=== PATIENT | male | born 1995 | race Caucasian/White ===

== ENCOUNTER 2019-07-06 14:33 | Emergency (ER) | payer OTHER ==
[~2019-07-06] VITALS: Ht 175.3 cm; Wt 61.2 kg
[2019-07-06 14:42] VITALS: BP 128/79
--- NOTE | 2019-07-06 14:45 | NUR ---
PT TO ER BED 3
[2019-07-06] MEDS ORDERED: NACL 0.9% 1,000 ML IV SCH (14:47)
[2019-07-06] MEDS ORDERED: KETOROLAC 30 MG/ML VIAL IVP ONE (14:50)
[2019-07-06] MEDS ORDERED: ONDANSETRON 4 MG/2 ML VIAL IVP ONE (14:50)
[2019-07-06 15:08] LABS: BASOPHILS % (AUTO) 0.1 % (0.0-2.0); HEMATOCRIT 41.9 % (36-52); HEMOGLOBIN 14.1 g/dL (12.0-18.0); LYMPHOCYTES # (AUTO) 0.9 K/uL (2.0-11.5); LYMPHOCYTES % (AUTO) 4.7 % (20.5-51.1); MEAN CORPUSCULAR HEMOGLOBIN 31 pg (27-31); MEAN CORPUSCULAR HGB CONC 34 g/dL (33-37); MEAN CORPUSCULAR VOLUME 92.3 fL (80-94); MONOCYTES # (AUTO) 0.6 K/uL (0.8-1.0); MONOCYTES % (AUTO) 2.8 % (1.7-9.3); NEUTROPHILS % (AUTO) 92.4 % (42.2-75.2); PLATELET COUNT (AUTO) 435 K/uL (140-450); RED BLOOD CELL COUNT(AUTO) 4.54 MIL/uL (4.20-6.10); RED CELL DISTRIBUTION WIDTH 13.6 % (11.6-13.7); WHITE BLOOD COUNT (AUTO) 19.5 K/uL (4.8-10.8)
--- NOTE | 2019-07-06 15:14 | NUR ---
23YO M C/O NAUSEA AND VOMITING X 2 DAYS. PT REPORTS ~30 EPISODES OF VOMITING SINCE YDAY. PT ADMITS TO CONSUMPTION OF 3 BOTTLES OF BEER PRIOR TO EPISODES. PT ALSO WITH HEADACHE AND 8/10 SHARP ABDOMINAL PAIN. NO MEDS TAKEN. AAOX4, PERLL 3MM; LUNGS CLEAR BL; HR EVEN AND REGULAR; PT DENIES ANY FEVER, CP, SOB, OR COUGH AT THIS TIME; VSS; PT WITH ACTIVE VOMITING IN ER. PATIENT POSITIONED FOR COMFORT; HOB ELEVATED; BEDRAILS UP X2; BED DOWN. ER MD MADE AWARE OF PT STATUS. LEILANI
[2019-07-06 16:09] LABS: ALBUMIN 5.2 g/dL (3.4-5.0); CARBON DIOXIDE 22.6 mmol/L (21-32); CREATININE 1.2 mg/dL (0.6-1.3); TOTAL BILIRUBIN 0.5 mg/dL (0.0-1.0)
[2019-07-06 16:45] LABS: POTASSIUM 3.5 mmol/L (3.5-5.1)
[2019-07-06 16:49] LABS: ANION GAP 23.9 (8-16)
[2019-07-06 17:25] VITALS: BP 128/79
--- NOTE | 2019-07-06 17:25 | NUR ---
Patient discharged with v/s stable. Written and verbal after care instructions given and explained. Patient alert, oriented and verbalized understanding of instructions. Ambulatory with steady gait. All questions addressed prior to discharge. ID band removed. Patient advised to follow up with PMD. Rx of ZOFRAN,MOTRIN given. Patient educated on indication of medication including possible reaction and side effects. Opportunity to ask questions provided and answered.
== END 2019-07-06 17:25 | disposition home or self-care (01) ==
LOC: MED 14:33
DX: R10.13 Epigastric pain (principal); R11.2 Nausea with vomiting, unspecified; F17.210 Nicotine dependence, cigarettes, uncomplicated
CPT/HCPCS: 36415; 80053; 83690; 85025; 96361; 96374; 96375; 99283; J1885; J2405; J7030

== ENCOUNTER 2019-07-25 08:17 | Emergency (ER) | payer OTHER ==
[~2019-07-25] VITALS: Ht 175.3 cm; Wt 55.6 kg
[2019-07-25 08:27] VITALS: BP 133/78
--- NOTE | 2019-07-25 08:30 | NUR ---
23 Y/O M C/C ANXIETY/VOMITING/HEAD SPINNING X TODAY AT 0500 HOURS. PER PT DID NOT TAKE RX AT HOME. PT NKA. NO HX. NO RX. NO DIARRHEA. NEURO WDL, AMBULATED. SIDE RAIL X1.
--- NOTE | 2019-07-25 08:30 | NUR ---
ERMD AT BEDSIDE
[2019-07-25] MEDS ORDERED: NACL 0.9% 1,000 ML IV SCH (08:37)
[2019-07-25] MEDS ORDERED: ONDANSETRON 4 MG/2 ML VIAL IVP ONE (08:40)
--- NOTE | 2019-07-25 08:54 | NUR ---
US AT BEDSIDE
[2019-07-25 08:59] LABS: BASOPHILS # (AUTO) 0.2 K/uL (0.00-0.22); BASOPHILS % (AUTO) 1.8 % (0.0-2.0); EOSINOPHILS % (AUTO) 0.2 % (0.0-4.0); HEMATOCRIT 41.6 % (36-52); HEMOGLOBIN 14.4 g/dL (12.0-18.0); LYMPHOCYTES # (AUTO) 0.7 K/uL (2.0-11.5); LYMPHOCYTES % (AUTO) 7.5 % (20.5-51.1); MEAN CORPUSCULAR HEMOGLOBIN 31 pg (27-31); MEAN CORPUSCULAR HGB CONC 35 g/dL (33-37); MEAN CORPUSCULAR VOLUME 90.5 fL (80-94); MONOCYTES # (AUTO) 0.5 K/uL (0.8-1.0); MONOCYTES % (AUTO) 5.3 % (1.7-9.3); NEUTROPHILS # (AUTO) 8.4 K/uL (1.8-7.7); NEUTROPHILS % (AUTO) 85.2 % (42.2-75.2); PLATELET COUNT (AUTO) 342 K/uL (140-450); WHITE BLOOD COUNT (AUTO) 9.8 K/uL (4.8-10.8)
[2019-07-25 09:15] LABS: ANION GAP 17.4 (8-16); CARBON DIOXIDE 24.2 mmol/L (21-32); CREATININE 0.8 mg/dL (0.6-1.3); POTASSIUM 3.6 mmol/L (3.5-5.1)
[2019-07-25 09:17] LABS: APPEARANCE,URINE CLEAR (CLEAR); BILIRUBIN,URINE NEGATIVE (NEGATIVE); BLOOD, URINE NEGATIVE (NEGATIVE); COLOR,URINE YELLOW (YELLOW); LEUKOCYTE ESTERASE ,URINE NEGATIVE (NEGATIVE); NITRITE, URINE NEGATIVE (NEGATIVE); UGLUCOSE NEGATIVE (NEGATIVE)
[2019-07-25 09:20] LABS: ALBUMIN 4.7 g/dL (3.4-5.0); TOTAL BILIRUBIN 0.5 mg/dL (0.0-1.0)
--- NOTE | 2019-07-25 09:37 | NUR ---
PT RESTING IN BED, SIDE RAIL X1
[2019-07-25] MEDS ORDERED: DICYCLOMINE HCL LIQUID 20 MG, ALUMINUM HYD/MAG/SIMETHICONE 30 ML, LIDOCAINE VISCOUS 2% ... PO ONE ×3 (09:50)
[2019-07-25] MEDS ORDERED: LORazepam 1 MG TAB PO ONE (09:50)
[2019-07-25] MEDS ORDERED: ALUMINUM HYD/MAG/SIMETHICONE 30 ML UDC ONE (09:59)
[2019-07-25] MEDS ORDERED: DICYCLOMINE HCL LIQUID 10 MG/5 ML UDC ONE (09:59)
[2019-07-25] MEDS ORDERED: LIDOCAINE VISCOUS 2% 20 ML UDC ONE (09:59)
[2019-07-25 10:26] VITALS: BP 130/76
== END 2019-07-25 10:27 | disposition home or self-care (01) ==
LOC: MED 08:17
DX: R11.2 Nausea with vomiting, unspecified (principal); R10.13 Epigastric pain; J45.909 Unspecified asthma, uncomplicated
CPT/HCPCS: 36415; 76705; 80053; 81003; 83690; 85025; 96361; 96374; 99284; J2405; J7030; Q0092

== ENCOUNTER 2020-01-30 03:12 | Emergency (ER) | payer OTHER ==
[~2020-01-30] VITALS: Ht 172.7 cm; Wt 59.9 kg
[2020-01-30 03:12] VITALS: BP 132/90
--- NOTE | 2020-01-30 03:12 | NUR ---
24 Y/O MALE BIBA C/O OVERDOSE. PER EMS PT WAS FOUND UNRESPONSIVE BY HIS MOTHER. EMS ADMINISTERED 1 DOSE OF NARCAN ON SCENE W/ + RESPONSE. PT IS CURRENTLY A/O X 4 , PERRLA 3MM , BL LUNG SOUNDS CLEAR , RR EVEN AND UNLABORED , S1S2 NOTED. PT STATES HE TOOK 2 OXYCODONES , POSSIBLY XANAX AND DRANK 3 - 4 BEERS W/ HIS FRIEND WHILE AT HOME STARTING AROUND 0030 THIS MORNING. PT STATES HE'S NOT SURE WHY HIS MOM CALLED 911 BUT HE FIGURES IT WAS BECAUSE SHE WAS WORRIED. PT DENIES ANY SELF HARM INTENT. PT STATES HE WAS JUST HAVING FUN W/ HIS FRIEND. PT PLACED IN GOWN, CONNECTED TO SQL SERVER DEVELOPER, PULSE OX AND BP CUFF. PT RESTING IN BED , LOCKED AND IN LOWEST POSITION, HOB ELEVATED, SIDE RAIL X2 FOR PT SAFETY. PMH: ASTHMA NKA
--- NOTE | 2020-01-30 03:12 | NUR ---
PT BIBA TO ER BED # 7
--- NOTE | 2020-01-30 03:34 | NUR ---
18 G IV NOTED ON PT LT FOREARM , INSERTED PRIOR TO ER ARRIVAL. IV FLUSHED W/ 10 CC NS . IV PATENT , NO SIGNS OF INFILTRATION, REDNESS , SWELLING OR PAIN NOTED AT IV SITE.
--- NOTE | 2020-01-30 03:37 | NUR ---
DR. RUSH AT BEDSIDE FOR MEDICAL EVALUATION.
[2020-01-30 04:21] VITALS: BP 132/90
== END 2020-01-30 04:21 | disposition home or self-care (01) ==
LOC: MED 03:12
DX: T40.2X1A Poisoning by other opioids, accidental (unintentional), initial encounter (principal); J45.909 Unspecified asthma, uncomplicated; Y92.89 Other specified places as the place of occurrence of the external cause
CPT/HCPCS: 99283

== ENCOUNTER 2020-01-31 19:54 | Emergency (ER) | payer OTHER ==
[~2020-01-31] VITALS: Ht 165.1 cm; Wt 59.0 kg
[2020-01-31 19:54] VITALS: BP 140/80
--- NOTE | 2020-01-31 19:54 | NUR ---
PT BIB MOTHER C/O OVERDOSE PER MOM
--- NOTE | 2020-01-31 19:55 | NUR ---
PT W/C TO BED 4 AND CONNECTED TO BEDSIDE MONITOR. ERMD AT BEDSIDE .
--- NOTE | 2020-01-31 19:59 | NUR ---
RT AT BEDSIDE
--- NOTE | 2020-01-31 20:00 | NUR ---
PT ON 2L NC AND SPO2 IS NOW 96-98%.
--- NOTE | 2020-01-31 20:00 | NUR ---
C/O OVERDOSE - BIB MOTHER UNRESPONSIVE - PER MOTHER SHE BELIEVES HE TOOK XANAX. flacc score is 0. PT IS AROUSABLE WITH DEEP STIMULATE PAIN. SPO2 90% RA. SLOW, SHALLOW, AGONAL BREATHING, +SNORING. LUNG SOUNDS RONCHI ON UPPER BILAT LOBES, AND DIMINSHED ON BILAT LOWER BASES. EQUAL CHEST RISE AND FALL. GCS IS 9. SPEECH IS GARBLED, SLURRED ADN DELAYED. SKINS IS PALE AND WARM TO TOUCH. NO USE OF ACCESSORY MUSCLE. +DROOLING. GAG REFLEX INTACTED. HEART SOUNDS S1S2 PRESENT. CAP REFILL < 3, SINUS TACHY. UNABLE TO AMBULATE. PMH: NONE NKA
[2020-01-31 20:23] LABS: BASOPHILS % (AUTO) 0.6 % (0.0-2.0); EOSINOPHILS # (AUTO) 0.3 K/uL (0-0.4); EOSINOPHILS % (AUTO) 4.2 % (0.0-4.0); HEMATOCRIT 40.2 % (36-52); HEMOGLOBIN 13.5 g/dL (12.0-18.0); LYMPHOCYTES # (AUTO) 2.4 K/uL (2.0-11.5); LYMPHOCYTES % (AUTO) 33.4 % (20.5-51.1); MEAN CORPUSCULAR HEMOGLOBIN 32 pg (27-31); MEAN CORPUSCULAR HGB CONC 34 g/dL (33-37); MEAN CORPUSCULAR VOLUME 94.2 fL (80-94); MONOCYTES # (AUTO) 0.6 K/uL (0.8-1.0); MONOCYTES % (AUTO) 7.9 % (1.7-9.3); NEUTROPHILS # (AUTO) 3.8 K/uL (1.8-7.7); NEUTROPHILS % (AUTO) 53.9 % (42.2-75.2); PLATELET COUNT (AUTO) 329 K/uL (140-450); RED BLOOD CELL COUNT(AUTO) 4.27 MIL/uL (4.20-6.10); RED CELL DISTRIBUTION WIDTH 13.7 % (11.6-13.7); WHITE BLOOD COUNT (AUTO) 7.1 K/uL (4.8-10.8)
[2020-01-31] MEDS ORDERED: NALOXONE 0.4 MG/ML VIAL IVP STA (20:28)
--- NOTE | 2020-01-31 20:30 | NUR ---
NARCAN ORDER 0.2 MG IVP. ADMINISTERD AT THIS TIME.
--- NOTE | 2020-01-31 20:35 | NUR ---
PT IS A&O X4. CLEAR SPEECH. ABLE TO AMBULATE, NO DISTRESS NOTED AT THIS TIME.
[2020-01-31 20:40] LABS: ALBUMIN 4.4 g/dL (3.4-5.0); ANION GAP 11.9 (8-16); ASPARTATE AMINOTRANSFERASE 19 U/L (15-37); CARBON DIOXIDE 31.8 mmol/L (21-32); CHLORIDE 101 mmol/L (98-107); CREATININE 1.1 mg/dL (0.6-1.3); GFR ARICAN-AMERICAN 108 mL/min (>90); GLUCOSE 169 mg/dL (74-106); POTASSIUM 3.7 mmol/L (3.5-5.1); SALICYLATE < 2.8 mg/dL (2.8-20.0); SODIUM SERUM 141 mmol/L (136-145); TOTAL BILIRUBIN 0.3 mg/dL (0.0-1.0); UREA NITROGEN, BLOOD 14 mg/dL (7-18)
[2020-01-31 20:41] LABS: ACETAMINOPHEN < 0.5 ug/ml (10-30)
[2020-01-31 20:47] VITALS: BP 140/80
--- NOTE | 2020-01-31 20:47 | NUR ---
Patient does not wish to proceed with medical care recommended by DR. MACIAS. Patient given information related to possible complications, up to and including , which could occur as a result of leaving hospital at this time. Patient verbalizes understanding of risks involved leaving against medical advice. Patient has signed AMA form.
== END 2020-01-31 20:47 | disposition left against medical advice (07) ==
LOC: MED 19:54
DX: T40.601A Poisoning by unspecified narcotics, accidental (unintentional), initial encounter (principal); R00.1 Bradycardia, unspecified; R09.02 Hypoxemia; F17.210 Nicotine dependence, cigarettes, uncomplicated; J45.909 Unspecified asthma, uncomplicated; Y92.89 Other specified places as the place of occurrence of the external cause
CPT/HCPCS: 36415; 71045; 80053; 85025; 93005; 96374; 99291; G0480; G0482; J2310; Q0092; 99285

== ENCOUNTER 2020-05-29 06:24 | Emergency (ER) | payer OTHER ==
--- NOTE | 2020-05-29 06:25 | NUR ---
PATIENT CALLED [facility] TRIAGE NO RESPONSE PATIENT LEFT WITHOUT BEING SEEN BY DR. MACIAS. NO FURTHER CARE PROVIDED FOR PATIENT.
--- NOTE | 2020-05-29 06:30 | NUR ---
CALLED FOR THE SECOND TIME NO RESPONSE
--- NOTE | 2020-05-29 06:35 | NUR ---
CALLED FOR THE THIRD TIME NO RESPONSE
== END 2020-05-29 06:25 | disposition left against medical advice (07) ==
LOC: MED 06:24
DX: Z53.21 Procedure and treatment not carried out due to patient leaving prior to being seen by health care provider (principal)

== ENCOUNTER 2021-01-13 05:20 | Emergency (ER) | payer OTHER ==
[~2021-01-13] VITALS: Ht 172.7 cm; Wt 54.4 kg
--- NOTE | 2021-01-13 05:21 | NUR ---
PT BIBA FULL ARREST. PT TAKEN TO ER BED 8. DR. THOMPSON AND RT AT BEDSIDE
--- NOTE | 2021-01-13 05:21 | NUR ---
BIBA FULL ARREST FROM HOME, SEE CODE BLUE SHEET.
--- NOTE | 2021-01-13 05:34 | NUR ---
PT PRONOUNCED AT THIS TIME BY DR. Tremaine THOMPSON
--- NOTE | 2021-01-13 05:34 | NUR ---
FAMILY AT BEDSIDE, MOTHER ASKED TO STOP CPR.
--- NOTE | 2021-01-13 05:34 | NUR ---
FAMILY AT BEDSIDE
--- NOTE | 2021-01-13 05:45 | NUR ---
CALLED TO RUG SAMPLE BEVELER OFFICE, EMELYN ANSWERED FROM LACHELLE'S OFFICE. RUG SAMPLE BEVELER WILL RETURN CALL.
--- NOTE | 2021-01-13 05:50 | NUR ---
CALLED TO REPORT TO [facility], ARIADNA ANSWERED PHONE CALL. ARIADNA STATED THEY WILL CALL BACK TO CONFIRM IF CASE IS A GEOLOGIST'S CASE. [facility] CASE #: [id number]
--- NOTE | 2021-01-13 06:04 | NUR ---
MARKETING TRAFFIC COORDINATOR'S OFFICE CALLED BACK FOR CASE. AMARIS FROM MARKETING TRAFFIC COORDINATOR'S OFFICE STATED THAT THEY CANNOT RELEASE BODY WITHOUT MEDICAL HISTORY, NAME OF PRIMARY DOCTOR AND PIPE ORGAN TUNER AND REPAIRER RUN REPORT. PIPE ORGAN TUNER AND REPAIRER RUN REPORT HAS NOT BEEN SENT AT THIS TIME.
--- NOTE | 2021-01-13 06:36 | NUR ---
CALLED ELECTROPLATING WORKER'S OFFICE TO REPORT MISSING INFORMATION BASED ON MISSING VICE PRESIDENT OF RECRUITING RUN REPORT, EMELYN ANSWERED FROM LACHELLE'S DISPATCH. SHE STATES THAT ELECTROPLATING WORKER WILL CALL BACK.
--- NOTE | 2021-01-13 06:50 | NUR ---
RECIEVED CALL BACK FROM DIGITAL EXPERIENCE MANAGER'S OFFICE, DOMINGO BENÍTEZ. ASKED FOR MEDICAL CHARTING COPIES FOR TRANSPORT TEAM. CASE #: [id number]
--- NOTE | 2021-01-13 06:58 | NUR ---
RECIEVED CALL FROM [facility] FROM NAME OF TL. ASKED FOR PCB DESIGNER CASE NUMBER AND PCB DESIGNER'S NAME.
--- NOTE | 2021-01-13 07:25 | NUR ---
REPORT GIVEN TO FRITZ DURAN. TRANSFER OF CARE AT THIS TIME
--- NOTE | 2021-01-13 07:35 | NUR ---
PT PLACED IN BODYBAG AND PT IDENTIFICATION PLACED ON TOE, BAG, AND BELONGINGS. PT REMAINS UNTOUCHED PER SPORTING GOODS SALESPERSON, WAITING FOR SPORTING GOODS SALESPERSON PICKUP
--- NOTE | 2021-01-13 08:26 | NUR ---
ACCOUNT CONTACT ASSOCIATE AT BEDSIDE FOR GRADE CHECKER.
--- NOTE | 2021-01-13 08:31 | NUR ---
MARKSMANSHIP INSTRUCTOR TALKING TO FAMILY AT BEDSIDE
--- NOTE | 2021-01-13 09:00 | NUR ---
PT BODY PICKED UP BY SUPERVISOR SCRAP PREPARATION AT THIS TIME
== END 2021-01-13 09:00 ==
LOC: MED 05:20
DX: I46.9 Cardiac arrest, cause unspecified (principal); F19.10 Other psychoactive substance abuse, uncomplicated; J45.909 Unspecified asthma, uncomplicated
CPT/HCPCS: 31500; 92950; 99285